=== PATIENT | female | born 1995 | race Caucasian/White ===

== ENCOUNTER 2017-03-28 17:25 | Emergency (ER) | payer BC ==
[~2017-03-28] VITALS: Ht 160 cm; Wt 49.9 kg
[2017-03-28 17:29] VITALS: BP 123/77
== END 2017-03-28 18:09 | disposition home or self-care (01) ==
LOC: ER 17:30
DX: M54.9 Dorsalgia, unspecified (principal); F17.200 Nicotine dependence, unspecified, uncomplicated; V49.49XA Driver injured in collision with other motor vehicles in traffic accident, initial encounter; Y93.89 Activity, other specified; Y92.413 State road as the place of occurrence of the external cause; Y99.8 Other external cause status
CPT/HCPCS: 99283; 99406; A4606; Z7610